=== PATIENT | female | born 1955 | race Caucasian/White ===

== ENCOUNTER 2017-12-18 14:07 | Emergency (ER) | payer BC ==
[~2017-12-18] VITALS: Ht 160 cm; Wt 71.0 kg
[~2017-12-18 14:07] MED LIST: ASPI81TA45 PO; HYDR-2768 PO; METO50TA OR; NAPR-576 PO; OMEP20TA39 PO; SPIR25TA PO
[2017-12-18 14:34] VITALS: BP 142/75; PULSE 72; RESP 16; TEMP 98.1; O2SAT 94
[2017-12-18] MEDS ORDERED: OMEP40CA2 PO (14:40)
[2017-12-18] MEDS ORDERED: SPIR25TA PO (14:40)
[2017-12-18] MEDS ORDERED: ASPI-516 CHEW (14:40)
[2017-12-18] MEDS ORDERED: HYDR25TA5 PO (14:40)
[2017-12-18] MEDS ORDERED: METO50TA PO (14:40)
[2017-12-18] MEDS ORDERED: NAPR500T2 PO (14:40)
[2017-12-18] MEDS ORDERED: SODIUM CHLORIDE 0.9% FLUSH 10 ML FLUSH IVF PRN (14:45)
[2017-12-18] MEDS ORDERED: RESP: ALBUTEROL 2.5 MG/3 ML NEB (SCH) INH ONE (14:45)
[2017-12-18] MEDS ORDERED: methylPREDNISolone SOD SUCC 125 MG/2 ML VIAL IV PUSH ONE (14:45)
--- NOTE | 2017-12-18 14:47 | PD ---
HPI Chief Complaint: Cold / Flu Symptoms Time Seen by Provider: 14:34 Travel History International Travel<30 days: No Contact w/Intl Traveler<30days: No Traveled to known affect area: No History of Present Illness HPI This 62-year-old female says she's had a sore throat and cough for the past month feels like she got a cough and flu about a month ago. Her symptoms have not alleviated. She has persistent cough which is the doctor of yellow phlegm. She gets short of breath at times. She has a pressure over the chest when she is coughing. She smoked for about 30 years she has been told that she has COPD she has chronic since 1999. She does have a history of hypertension and is on 5 different blood pressure medications. she has seen a supervisor [employer] and was told that her heart is fine. PFSH Past Medical History Hx Anticoagulant Therapy: Yes (BABY ASA) Cardiovascular Problems: Yes (htn on meds) Diabetes: No Patient Takes Glucophage: No Diminished Hearing: No Hypertension: Yes Respiratory: Yes (COPD) Tetanus Vaccination: Unknown ?: Not Menopausal: Yes Past Surgical History Gynecologic Surgery: Yes Hysterectomy: Yes Social History Alcohol Use: Yes (OCCASIONAL) Tobacco Use: No Substance Use: No Allergies-Medications (Allergen,Severity, Reaction): Coded Allergies: No Known Allergies (Verified Adverse Reaction, Unknown, 12/18/17) Reported Meds & Prescriptions Reported Meds & Active Scripts Active Reported Naproxen 500 Mg Tab 500 Mg PO BID Spironolactone 25 Mg Tab 25 Mg PO BIDPC Omeprazole 40 Mg Cap 40 Mg PO DAILY Metoprolol Tartrate 50 Mg Tab 50 Mg PO BID Hydrochlorothiazide 25 Mg Tab 25 Mg PO DAILY Aspirin 81 Mg Chew 81 Mg CHEW DAILY Review of Systems Except as stated in HPI: all other systems reviewed are Neg General / Constitutional: No: Fever, Chills Eyes: No: Diploplia, Blurred Vision HENT: Positive: Sore Throat, No: Headaches Cardiovascular: Positive: Chest Pain or Discomfort, No: Palpitations Respiratory: Positive: Cough, Shortness of Breath Gastrointestinal: No: Nausea, Vomiting Genitourinary: No: Urgency, Frequency Musculoskeletal: No: Myalgias, Arthralgias Skin: No Rash, No Itching Endocrine: No: Heat Intolerance Hematologic/Lymphatic: No: Easy Bruising Physical Exam Narrative GENERAL: Well-developed female SKIN: Focused skin assessment warm/dry. HEAD: Atraumatic. Normocephalic. EYES: Pupils equal and round. No scleral icterus. No injection or drainage. ENT: No nasal bleeding or discharge. Mucous membranes pink and moist. NECK: Trachea midline. No JVD. CARDIOVASCULAR: Regular rate and rhythm. No murmur appreciated. RESPIRATORY: No accessory muscle use. There are bilateral scattered rhonchi and occasional wheeze Breath sounds equal bilaterally. GASTROINTESTINAL: Abdomen soft, non-tender, nondistended. Hepatic and splenic margins not palpable. MUSCULOSKELETAL: No obvious deformities. No clubbing. No cyanosis. No edema. NEUROLOGICAL: Awake and alert. No obvious cranial nerve deficits. Motor grossly within normal limits. Normal speech. PSYCHIATRIC: Appropriate mood and affect; insight and judgment normal. Data Data Last Documented VS Vital Signs Date Time Temp Pulse Resp B/P (MAP) Pulse Ox O2 Delivery O2 Flow Rate FiO2 12/18/17 14:34 98.1 72 16 142/75 (97) 94 Orders Orders Electrocardiogram (12/18/17 14:42) Basic Metabolic Panel (Bmp) (12/18/17 14:42) Complete Blood Count With Diff (12/18/17 14:42) Chest, Single Ap (12/18/17 14:42) Methylprednisolone So Succ Inj (Solumedr (12/18/17 14:45) Albuterol Neb (Albuterol Neb) (12/18/17 14:45) Sodium Chloride 0.9% Flush (Ns Flush) (12/18/17 14:45) Labs Laboratory Tests Test 12/18/17 15:05 White Blood Count 12.0 TH/MM3 Red Blood Count 4.74 MIL/MM3 Hemoglobin 14.4 GM/DL Hematocrit 43.1 % Mean Corpuscular Volume 90.9 FL Mean Corpuscular Hemoglobin 30.4 PG Mean Corpuscular Hemoglobin Concent 33.4 % Red Cell Distribution Width 11.6 % Platelet Count 399 TH/MM3 Mean Platelet Volume 8.1 FL Neutrophils (%) (Auto) 60.0 % Lymphocytes (%) (Auto) 23.6 % Monocytes (%) (Auto) 10.5 % Eosinophils (%) (Auto) 2.4 % Basophils (%) (Auto) 3.5 % Neutrophils # (Auto) 7.2 TH/MM3 Lymphocytes # (Auto) 2.8 TH/MM3 Monocytes # (Auto) 1.3 TH/MM3 Eosinophils # (Auto) 0.3 TH/MM3 Basophils # (Auto) 0.4 TH/MM3 CBC Comment DIFF FINAL Differential Comment Blood Urea Nitrogen 8 MG/DL Creatinine 0.69 MG/DL Random Glucose 93 MG/DL Calcium Level 8.9 MG/DL Sodium Level 131 MEQ/L Potassium Level 4.8 MEQ/L Chloride Level 97 MEQ/L Carbon Dioxide Level 26.2 MEQ/L Anion Gap 8 MEQ/L Estimat Glomerular Filtration Rate 86 ML/MIN [facility] Medical Decision Making Medical Screen Exam Complete: Yes Emergency Medical Condition: Yes Medical Record Reviewed: Yes Differential Diagnosis Differential includes COPD exacerbation, pneumonia, bronchitis Narrative Course EKG shows normal sinus rhythm. Chest x-ray is negative. Patient did get some relief with an albuterol inhalation. Impression is acute bronchitis in a patient with COPD Diagnosis Primary Impression: Acute exacerbation of chronic obstructive pulmonary disease (COPD) Scripts Albuterol 18 GM Inh (Ventolin Hfa 18 GM Inh) 90 Mcg/Act Aer 2 PUFF INH Q4-6H Y for SHORTNESS OF BREATH, #1 INHALER 0 Refills Prov: Stef Sanches MD 12/18/17 Amoxicillin (Amoxicillin) 500 Mg Cap 500 MG PO TID for Infection for 10 Days, CAP 0 Refills Prov: Stef Sanches MD 12/18/17 Prednisone (Prednisone) 20 Mg Tab 20 MG PO DIRECTED, #24 TAB 0 Refills Take 60 MG daily x 4 days, then 40 MG x 4 days, then 20 MG daily x 4 days. Prov: Stef Sanches MD 12/18/17 Disposition: 01 DISCHARGE HOME Condition: Stable Stef Sanches MD Dec 18, 2017 14:47
[2017-12-18 15:17] LABS: AUTOMATED NEUTROPHIL # 7.2 TH/MM3 (1.8-7.7); BASOPHIL # 0.4 TH/MM3 (0-0.2); BASOPHIL % 3.5 % (0.0-2.0); EOSINOPHIL # 0.3 TH/MM3 (0-0.4); EOSINOPHIL % 2.4 % (0.0-4.0); HEMATOCRIT 43.1 % (35.0-46.0); HEMOGLOBIN 14.4 GM/DL (11.6-15.3); LYMPH % 23.6 % (9.0-44.0); LYMPHOCYTE # 2.8 TH/MM3 (1.0-4.8); MEAN CELL VOLUME 90.9 FL (80.0-100.0); MEAN CORPUSCULAR HEMOGLOBIN 30.4 PG (27.0-34.0); MEAN CORPUSCULAR HGB CONC 33.4 % (32.0-36.0); MEAN PLATELET VOLUME 8.1 FL (7.0-11.0); MONO % 10.5 % (0.0-8.0); MONOCYTE # 1.3 TH/MM3 (0-0.9); PLATELET COUNT 399 TH/MM3 (150-450); RED BLOOD COUNT 4.74 MIL/MM3 (4.00-5.30); RED CELL DISTRIBUTION WIDTH 11.6 % (11.6-17.2)
[2017-12-18 15:33] LABS: BICARBONATE 26.2 MEQ/L (21.0-32.0); CALCIUM 8.9 MG/DL (8.5-10.1)
[2017-12-18 15:37] LABS: CREATININE 0.69 MG/DL (0.50-1.00)
--- NOTE | 2017-12-18 15:51 | RADRPT ---
EXAM DATE/TIME: 12/18/2017 14:50 [place] COMPARISON: No previous studies available for comparison. INDICATIONS : Sore throat, cough, chest pressure when coughing. MEDICAL HISTORY : Hypertension. Chronic obstructive pulmonary disease. SURGICAL HISTORY : Hysterectomy. Breast augumentation. ENCOUNTER: Initial ACUITY: 1 month PAIN SCORE: 6/10 LOCATION: chest FINDINGS: The cardiac silhouette is normal in transverse diameter. The lungs are free of acute parenchymal opac ity. No effusions are identified. Calcified breast implants are present bilaterally CONCLUSION: 1. No acute cardiopulmonary disease. Davian Sheriff MD on December 18, 2017 at 15:05 Board Certified Radiologist. This report was verified electronically.
[2017-12-18 15:56] VITALS: BP 154/72
[2017-12-18] MEDS ORDERED: AMOX500C PO (15:59)
[2017-12-18] MEDS ORDERED: PRED20 PO (15:59)
[2017-12-18] MEDS ORDERED: VENTAER INH (15:59)
--- NOTE | 2017-12-19 08:15 | EKG ---
Date Performed: 12/18/2017 Time Performed: 14:51:29 PTAGE: 62 years EKG: Sinus rhythm NORMAL ECG PREVIOUS TRACING : 12/12/2012 13.03 Since the prior tracing, there has been no significant rothman DOCTOR: Kym Argueta Interpretating Date/Time 12/19/2017 08:11:45
== END 2017-12-18 16:20 | disposition home or self-care (01) ==
LOC: PHED 14:07
DX: J44.1 Chronic obstructive pulmonary disease with (acute) exacerbation (principal); I10 Essential (primary) hypertension; Z79.82 Long term (current) use of aspirin
CPT/HCPCS: 71045; 80048; 85025; 93005; 94664; 96374; 99285; J2930; J7613